=== PATIENT | male | born 1980 | race Hispanic/Latino ===

== ENCOUNTER 2024-07-18 01:28 | Day surgery (SDC) | payer OTHER, SELFPAY ==
[2024-07-06 09:19] VITALS: BMI 28.5
--- NOTE | 2024-07-06 09:46 | PC.NURSE ---
Report to entrance 7 right of the green pavilion by [place] [facility] located off [facility], at time _0600_ on date _[id number]_. Planned Procedure Time: _0730_.? Time changes happen often and if your time is changed the preop area will call you the afternoon before. - You and your visitor will be asked to self-screen and do not enter if you have any COVID symptoms. Please call surgeon if you need to reschedule. - A mask is optional within the hospital at this time. Patients may have clear liquids (water, carbonated beverages, clear teas, apple juice) until 3 hours prior to surgery with a maximum of 20 ounces. - No food from midnight until time of surgery and no smoking, or chewing tobacco (or any form of nicotine). No chewing gum, candy or mints. Take only the following medications with a SIP of water on the morning of surgery: ___Acetaminophen, Aripiprazole, Buprenorphine-Nalaxone, ____ DO NOT STOP ANY OF YOUR OTHER PRESCRIPTION MEDICATIONS PRIOR TO SURGERY EXCEPT THE FOLLOWING Hold all vitamins and supplements for 3 days per anesthesiologist. Medications to discontinue per physician Date to take last dose Please no make-up, nail citizen of [place], hairspray, perfume, deodorant, or body powder the day of surgery.? No jewelry (including any body piercings) or valuables the day of surgery, leave them at home.? Please take a shower or bath the night before, or the morning of, surgery with an antibacterial soap.? Wear comfortable, loose fitting clothing.? - Jewelry must be removed prior to entering the operating room.? Rings and piercings that are not removed may be cut off. - The hospital will not accept responsibility for valuables.? - Please leave all valuables, including medications, at home the day of surgery. If you are going home after surgery, a licensed [employer] flat[employer] company truck driver must drive you home.? - NO public transportation without another adult if you receive anesthesia. - We recommend that an adult stay with you for 24 hours following discharge. - We also recommend that you do not drive, make important decision, drink alcoholic beverages, or take any drugs that were not prescribed by your health care provider for at least 24 hours after your discharge time. Follow any additional instructions given to you from your surgeon. Telephone instructions given to __Tina__and asked if any additional questions and then verbalized understanding. Patient advised to call surgeon office or pre surgery nurse liaison [phone] if any additional questions.
[2024-07-18] VITALS (7 sets, daily range): BP systolic 139–152; BP diastolic 84–98; PULSE 58–93; RESP 12–16; TEMP 36.1–36.6; O2SAT 99–100; BMI 29.4
--- OUTSIDE RECORDS SUMMARY | 2024-07-18 01:36 | XMS_ITS | Clinical Summary ---
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 Name Role Phone None, Provider Primary Care Provider Unavaila ble Allergies No known active allergies Medications No known medications Encounters Date Type Department Care Team Description 05/04/2024 9:39 PM MACHINING AND ASSEMBLY SUPERVISOR - 05/05/2024 12:55 AM MACHINING AND ASSEMBLY SUPERVISOR Emergency [facility] Emergency Room [address] [place] [address] Nasal Injury; Shoulder Injury Discharge Disposition: Home or Self Care (Routine Discharge) 05/04/2024 Travel from Last 3 Months Social History Tobacco Use Types Packs/Day Years Used Date Smoking Tobacco: Never Assessed Sex and Gender Information Value Date Recorded Sex Assigned at Male 05/04/2024 9:51 PM MACHINING AND ASSEMBLY SUPERVISOR Legal Sex Male 9:39 PM MACHINING AND ASSEMBLY SUPERVISOR Gender Identity Not on file Sexual Orientation Not on file Last Filed Vital Signs Vital Sign Reading Time Taken Comments Blood Pressure 136/93 05/04/2024 9:44 PM MACHINING AND ASSEMBLY SUPERVISOR Pulse 63 05/04/2024 9:44 PM MACHINING AND ASSEMBLY SUPERVISOR Temperature 36.7 C (98 F) 05/04/2024 9:44 PM MACHINING AND ASSEMBLY SUPERVISOR Respiratory Rate 18 05/04/2024 9:44 PM MACHINING AND ASSEMBLY SUPERVISOR Oxygen Saturation 99% 05/04/2024 9:44 PM MACHINING AND ASSEMBLY SUPERVISOR Inhaled Oxygen Concentration - - Weight 81.6 kg (180 lb) 05/04/2024 9:44 PM MACHINING AND ASSEMBLY SUPERVISOR Height 185.4 cm (6' 1 ) 05/04/2024 9:44 PM MACHINING AND ASSEMBLY SUPERVISOR Body Mass Index 23.75 05/04/2024 9:44 PM MACHINING AND ASSEMBLY SUPERVISOR Plan of Treatment Health Maintenance Due Date Last Done Comments Annual Physical 1984 Hepatitis C 11/12/1999 DTaP, Tdap and Td Vaccines ( 1 - Tdap) 2000 Hepatitis B Vaccines (1 of 3 - 19+ 3-dose series) 2000 COVID-19 Vaccine (2023-2 5 season) 2023 HPV Vaccines Aged Out No longer eligi ble based on patient's age to complete this topic Meningococcal B Vaccine Aged Out No l onger eligible based on patient's age to complete this topic Meningococcal Vaccine Aged Out No concetta carlos eligible based on patient's age to complete this topic Pneumococcal Vaccine: Pediat rics (0 to 5 Years) and At-Risk Patients (6 to 49 Years) Aged Out No longer eligible b ased on patient's age to complete this topic RSV Immunizations Under 20 Months Aged Out No longer eligible based on patient's age to complete this topic Procedures Procedure Name Priority Date/Time Associated Diagnosis Comments CT FACIAL BONES WO CON STAT 05/04/2024 11:05 PM MACHINING AND ASSEMBLY SUPERVISOR from Last 3 Months Results * CT FACIAL BONES WO CON (05/04/2024 11:05 PM MACHINING AND ASSEMBLY SUPERVISOR) Anatomical Region Laterality Modality Facial Computed Tomogra phy 05/04/2024 11:2 2 PM MACHINING AND ASSEMBLY SUPERVISOR Impressions 05/04/2024 11:28 PM MACHINING AND ASSEMBLY SUPERVISOR IMPRESSION: 1. Comminuted and mildly displaced bilateral nasal bone fractures. These are minimally displaced towards the right. 2. There appears to be fracturing of the nasal septum. 3. Findings suggestive of a prior fracture of the posterior inferior orbital floor on the right. No adjacent edematous changes to suggest acute fracture. Referred By: Interpreted By: Po Cifuentes MD, 05/04/2024 11:22 PM Narrative 05/04/2024 11:28 PM MACHINING AND ASSEMBLY SUPERVISOR [facility] [address] [place] [address] EXAMINATION: CT MAXILLOFACIAL WITHOUT CONTRAST INDICATION: Nasal injury. No other history is available. COMPARISON: None available. TECHNIQUE: Computed tomography of the maxillofacial region was performed without administration of intravenous contrast. Sagittal and coronal reconstructions. Radiation dose reduction technique(s) were used. FINDINGS: There is comminuted and mildly displaced bilateral nasal bone fractures. These are mildly displaced to the right. There also appears to be a fracture of the nasal septum. No other acute maxillofacial fractures are identified. Findings suggestive of a prior fracture involving the posterior aspect of the inferior orbital floor on the right. No adjacent edema or inflammatory changes. No acute sinus fluid levels are present. Paranasal sinuses are clear. Mastoid air cells and middle ears are clear. Orbital contents are normal. Procedure Note Po Cifuentes MD - 05/04/2024 [facility] [address] [place] [address] EXAMINATION: CT MAXILLOFACIAL WITHOUT CONTRAST INDICATION: Nasal injury. No other history is available. COMPARISON: None available. TECHNIQUE: Computed tomography of the maxillofacial region was performedwithout administration of intravenous contrast. Sagittal and coronalreconstructions. Radiation dose reduction technique(s) were used. FINDINGS: There is comminuted and mildly displaced bilateral nasal bone fractures.These are mildly displaced to the right. There also appears to be afracture of the nasal septum. No other acute maxillofacial fractures areidentified. Findings suggestive of a prior fracture involving theposterior aspect of the inferior orbital floor on the right. No adjacentedema or inflammatory changes. No acute sinus fluid levels are present.Paranasal sinuses are clear. Mastoid air cells and middle ears are clear.Orbital contents are normal. IMPRESSION: 1. Comminuted and mildly displaced bilateral nasal bone fractures. Theseare minimally displaced towards the right. 2. There appears to be fracturing of the nasal septum. 3. Findings suggestive of a prior fracture of the posterior inferiororbital floor on the right. No adjacent edematous changes to suggestacute fracture. Referred By: Interpreted By: Po Cifuentes MD, 05/04/2024 11:22 PM us Garry Zabala MD CT Final Resul t from Last 3 Months Insurance PENIT[employer]RECTIONAL [employer]ACILITIES [employer] Care Teams Soil Sort Worker Relationship Specialty Start Date End Date None, Provider, PCP - General UNKNOWN PHYSICIAN SPECIALTY 05/04/24
--- NOTE | 2024-07-18 06:05 | ECG_ITS ---
Test Date: 2024-07-18 07:03:58 Measurements Intervals [place] Rate: 55 P: 41 UT: 176 QRS: 46 QRSD: 98 T: 47 QT: 409 QTc: 393 Interpretive Statements SINUS BRADYCARDIA ST ELEVATION IN ANTERIOR LEADS- PROBABLY EARLY REPOLARIZATION BORDERLINE ECG No previous ECG available for comparison Electronically Signed On 07-18-2024 07:46:45 CDT by Luis Simpson D.O.
[2024-07-18] MEDS: ACETAMINOPHEN 500 MG TABLET 1000 MG PO (06:25)
[2024-07-18] MEDS: LACTATED RINGERS 1,000 ML 30 ML IV CONT ×2 (06:30→08:23)
--- NOTE | 2024-07-18 06:48 | P.PNAN_ITS ---
Anes - Initial Pre Proc Eval Procedure: Operation Date: 07/18/24 07:30 Proposed Procedures p Bilateral Turbinate Reduction - Da Canales MD s Septoplasty - Da Canales MD Date/Time: 07/18/24 06:48 Surgeon: Da Canales MD Pre Op Diagnosis: deviated septum, turbinate hypertrophy Patient Data Age: 43 Gender: M Height: 1.85 m Weight: 101.1 kg Last Vital Signs Temp 36.6 C 07/18/24 06:00 Pulse 58 L 07/18/24 06:00 Resp 16 07/18/24 06:00 BP 140/86 07/18/24 06:00 Pulse Ox 99 07/18/24 06:00 Allergies Allergy/AdvReac Type Severity Reaction Status Date / Time phenytoin (From Dilantin) Allergy Unknown Unknown Verified 07/18/24 06:03 Home Medications ?Medication ?Instructions ?Recorded ?Confirmed ?Type acetaminophen 500 mg tablet (Pain 1,000 mg PO Q12H 07/06/24 07/18/24 History Relief Extra Strength (acetaminophen)) aripiprazole 5 mg tablet 5 mg PO DAILY 07/06/24 07/18/24 History buprenorphine 12 mg-naloxone 3 mg 1 film sublingual DAILY 07/06/24 07/18/24 History sublingual film diclofenac sodium 1 % gel topical 2 g topical BID PRN pain 07/06/24 07/06/24 History kit lisinopril 10 mg tablet 10 mg PO DAILY 07/06/24 07/18/24 History lisinopril 5 mg tablet 5 mg PO DAILY 07/06/24 07/18/24 History mirtazapine 15 mg tablet 15 mg PO HS 07/06/24 07/18/24 History Patient hx anesthesia problems: none Family hx anesthesia problems: none Results Review: All pre-operative results and documents have been reviewed as part of the pre- operative evaluation. [facility] Past Medical History Medical History (Updated 07/18/24 @ 06:48 by Mj Black MD) HTN (hypertension) Social History Social History Substance use: former Substance use type: opiates Living arrangements: incarcerated Anes - Eval Final PreProcedure Day of Procedure 07/18/24 06:48 Patient weight: overweight ASA classification: III Emergent: no Anesthetic plan: proceed Anesthesia type and monitoring: general ETT and standard monitoring Results Review: All pre-operative results and documents have been reviewed as part of the pre- operative evaluation. Informed Consent: The patient's anesthetic plan and its attendant risks and benefits were discussed with the patient/family/POA. Questions were solicited and answers provided to the satisfaction of the patient/family/POA.
--- NOTE | 2024-07-18 07:06 | P.HP_ITS ---
H&P: HPI History of Present Illness Date/Time: 07/18/24 07:06 Chief Complaint: deviated septum Review of Systems Review of Systems: All systems reviewed & are unremarkable except as noted in HPI and below PMFSH Past Medical History Medical History HTN (hypertension) Social History Social History Substance use: former Substance use type: opiates Living arrangements: incarcerated Meds Home Medications and Allergies Home Medications ?Medication ?Instructions ?Recorded ?Confirmed ?Type acetaminophen 500 mg tablet (Pain 1,000 mg PO Q12H 07/06/24 07/18/24 History Relief Extra Strength (acetaminophen)) aripiprazole 5 mg tablet 5 mg PO DAILY 07/06/24 07/18/24 History buprenorphine 12 mg-naloxone 3 mg 1 film sublingual DAILY 07/06/24 07/18/24 History sublingual film diclofenac sodium 1 % gel topical 2 g topical BID PRN pain 07/06/24 07/06/24 History kit lisinopril 10 mg tablet 10 mg PO DAILY 07/06/24 07/18/24 History lisinopril 5 mg tablet 5 mg PO DAILY 07/06/24 07/18/24 History mirtazapine 15 mg tablet 15 mg PO HS 07/06/24 07/18/24 History Allergies Allergy/AdvReac Type Severity Reaction Status Date / Time phenytoin (From Dilantin) Allergy Unknown Unknown Verified 07/18/24 06:03 Vital Signs Vital Signs - 24 hr 07/18/24 06:00 Temperature 36.6 C Pulse Rate 58 L Respiratory Rate 16 Blood Pressure 140/86 Pulse Oximetry 99 Exam Narrative: right nasal septal deviation, turbinate hypertrophy, evidence of previous fracture and trauma, rest of exam unremarkable Assessment and Plan Assessment and plan (1) Deviated nasal septum: Code(s): J34.2 - Deviated nasal septum Status: Acute Plan This patient has significant nasal septal deviation after trauma occluding the nasal airway and preventing breathing from nose. Here for septoplasty and turbinoplasty. r/b/a reviewed, pt understands and agrees to proceed. Refer to outpt H&P for further detail. He is an inmate in custody of [facility] [address].
--- NOTE | 2024-07-18 07:09 | WPDHPUPDATE1 ---
History and Physical Update Update Date/Time: 07/18/24 07:09 History and Physical has been reviewed, including an updated exam of the patient. There are NO changes in the patient's condition. Risks, benefits, and alternatives have been discussed and questions answered. Patient agrees to proceed with procedure.
[2024-07-18] MEDS: ceFAZolin 2 GM/D5W 50 ML 2 GM/50 ML BAG IVPB (07:29)
[2024-07-18] MEDS: LIDO 1%/EPINEPHRINE 1:100,000 20 ML VIAL 10 ML INFILTRATE (07:42)
[2024-07-18] MEDS: OXYMETAZOLINE HCL 0.05% NAS 15 ML BTL (*BKC) 1 SPRAY NASAL (07:44)
[2024-07-18] MEDS: MUPIROCIN 2% OINT 22 GM TUBE 1 APPLIC EACH NARE (08:11)
--- NOTE | 2024-07-18 08:15 | P.OP_ITS ---
Procedure Note - Detailed Date of Procedure 07/18/24 Pre-op Diagnosis deviated septum, turbinate hypertrophy Post-op Diagnosis Same Procedure Performed septoplasty, bilateral inferior turbinoplasty Surgeon Da Canales MD Anesthesia General Indications nasal dyspnea, deviated septum Findings right septal deviation, brooke splints placed Description of Procedure After obtaining informed consent and proper site verification the patient was brought to the operating room and placed on the operating table in the supine position. They were placed under general endotracheal anesthesia by the anesthesia provider. The patient was then draped in standard fashion for septoplasty and turbinoplasty. A timeout was performed and the correct patient and procedure were verified. The nasal cavity was injected with 1% lidocaine with 1-100,000 epinephrine and packed with afrin-soaked cottonoid pledgets. ? Attention was then directed to the nasal septum. A hemitransfixion incision was made in the left caudal septum and a mucoperichondrial flap was elevated in the usual fashion. The flap was elevated under endoscopic visualization and the remainder of the case was performed with endoscopic assistance. Using a D- knife, an incision was made through the cartilaginous septum with care to preserve the appropriate caudal and dorsal ?L-strut? of cartilage. The cartilage was then disarticulated from the bony-cartilaginous junction and the deviated cartilage was removed. Further deviated bone and cartilage was removed from the maxillary crest and posterior bony septum with care to avoid injury to the mucoperichondrial flap using a combination of dissection and Danny- Lan forceps. Once this was completed, the hemitransfixion incision was closed using simple interrupted 4-0 chromic suture. A quilting stitch to reapproximate the mucoperichondrial flaps was then placed using 4-0 plain gut suture on a Darwin needle. ? Next attention was directed to the turbinates. Using a 0? telescope and 2mm turbinate blade microdebrider, a stab incision was made in the anterior face of the turbinate and dissection was carried posterior to perform submucosal resection. Next the turbinate was outfractured using a blunt instrument. A similar procedure was then performed on the right-hand side without difficulty. Brooke splints covered in mupirocin ointment were placed in the nasal cavity and secured to the membranous septum using a 3-0 Prolene suture. ?The patient was awakened from general anesthesia extubated in the operating room, and transported to the recovery room in stable condition without complication. Estimated Blood Loss 10 Drains No Packing Yes (brooke splints bilaterally) Pathology None sent Complications No immediate complications Condition Stable Disposition PACU
[2024-07-18] MEDS: fentaNYL CITRATE INJ (*CRX) 100 MCG/2 ML VIAL 25 MCG IV PUSH ×2 (09:03→09:05)
[2024-07-18] MEDS: oxyCODONE HCL (*CRX) 5 MG TAB IR PO (09:29)
--- NOTE | 2024-07-18 09:49 | SUR.PHASEII ---
2 GUARDS WITH PATIENT AT ALL TIMES. ANKLES CUFFED. THIS RN SPOKE TO PATIENT IN [place].
--- NOTE | 2024-07-18 09:50 | SUR.PHASEII ---
2X2'S AND PAPER TAPE GIVEN TO PATIENT AND EXPLAINED HOW TO CHANGE DRESSING.
--- NOTE | 2024-07-18 10:12 | SUR.PHASEII ---
[employer] CALLED TO ACCOMPANY PATIENT AND ALF GUARDS TO VEHICLE.
== END 2024-07-18 10:06 ==
PROVIDERS: Visit Provider Otolaryngology
PROC: (CPT 30520; principal; 2024-07-18 07:30)
PROC: (CPT 30520; 2024-07-18 07:30)
DX: J34.3 Hypertrophy of nasal turbinates (principal); J34.2 Deviated nasal septum
CPT/HCPCS: 30520; 30140; 93005; A9270; J0690; J1100; J1171; J2003; J2004; J2250; J2405; J2704; J3010; J7120